=== PATIENT | female | born 1960 | race Caucasian/White ===

== ENCOUNTER 2024-04-16 10:30 | Emergency (ER) | payer OTHER ==
[~2024-04-16] VITALS: Ht 167.6 cm; Wt 78.0 kg
[2024-04-16 12:55] VITALS: BP 160/90
== END 2024-04-16 13:01 | disposition home or self-care (01) | DRG 563 ==
LOC: ED 10:30
DX: S93.401A Sprain of unspecified ligament of right ankle, initial encounter (principal); I10 Essential (primary) hypertension; X58.XXXA Exposure to other specified factors, initial encounter